=== PATIENT | male | born 1990 | race African-American/Black ===

== ENCOUNTER 2021-04-12 09:04 | Emergency (ER) | payer SELFPAY ==
[~2021-04-12] VITALS: Ht 170.2 cm; Wt 75.0 kg
[2021-04-12] MEDS ORDERED: KETOROLAC 30MG/ML VIAL IV STA (09:46)
[2021-04-12] MEDS ORDERED: SODIUM CHLORIDE 0.9% 1,000 ML IV ONE (10:00)
[2021-04-12 10:01] LABS: CLARITY URINE CLEAR (CLEAR); COLOR URINE YELLOW (YELLOW); KETONES URINE TRACE (NEGATIVE); LEUKOCYTE ESTERASE URINE NEGATIVE (NEGATIVE); NITRITE URINE NEGATIVE (NEGATIVE); OCCULT BLOOD URINE NEGATIVE (NEGATIVE); PH URINE 5.5 (4.5-8.0); PROTEIN URINE NEGATIVE (NEGATIVE); SPECIFIC GRAVITY URINE 1.021 (1.005-1.030); UROBILINOGEN URINE 0.2 E.U./dL (0.2-1.0)
[2021-04-12 10:03] LABS: BASOPHILS % 0.5 % (0.0-2.0); EOSINOPHILS % 0.2 % (0.0-5.0); HEMATOCRIT. 38.4 % (42.0-52.0); HEMOGLOBIN. 13.6 g/dL (14.0-18.0); LYMPHOCYTES % 13.2 % (20.0-50.0); MEAN PLATELET VOLUME 6.8 fl (7.4-10.4); MONOCYTES % 5.9 % (2.0-8.0); NEUTROPHILS % 80.2 % (40.0-76.0); PLATELET 272 x1000/uL (130-400); RED BLOOD CELL COUNT 4.13 mill/uL (4.7-6.1); RED CELL DISTRIBUTION WIDTH 12.4 % (11.6-14.6)
[2021-04-12 10:06] LABS: CHLORIDE 106 mEq/L (98-107)
[2021-04-12] MEDS ORDERED: KETOROLAC 60MG/2ML VIAL IM ONE (10:30)
[2021-04-12 11:10] VITALS: BP 117/75
[2021-04-12] MEDS ORDERED: IBUP-2029 MT (11:16)
== END 2021-04-12 11:22 | disposition home or self-care (01) ==
LOC: ER 09:04
DX: R10.31 Right lower quadrant pain (principal); F17.210 Nicotine dependence, cigarettes, uncomplicated; F14.10 Cocaine abuse, uncomplicated; F12.10 Cannabis abuse, uncomplicated; Z71.6 Tobacco abuse counseling; Z87.442 Personal history of urinary calculi
CPT/HCPCS: 36415; 74176; 80053; 81003; 83690; 85025; 99284; 99406; J1885; J7030

== ENCOUNTER 2022-09-28 15:54 | Emergency (ER) | payer MEDICAID ==
[~2022-09-28] VITALS: Ht 170.2 cm; Wt 66.0 kg
[~2022-09-28 15:54] MED LIST: IBUP-2029 MT
[2022-09-28 16:16] VITALS: BP 135/83
[2022-09-28] MEDS ORDERED: IBUPROFEN 400MG TABLET PO ONE (18:45)
[2022-09-28] MEDS ORDERED: ACETAMINOPHEN 325MG TABLET PO ONE (18:45)
[2022-09-28] MEDS ORDERED: IBUP-2028 MT (19:50)
== END 2022-09-28 19:56 | disposition home or self-care (01) ==
LOC: ER 15:54
DX: S20.319A Abrasion of unspecified front wall of thorax, initial encounter (principal); S30.811A Abrasion of abdominal wall, initial encounter; S30.810A Abrasion of lower back and pelvis, initial encounter; Y08.89XA Assault by other specified means, initial encounter; Y93.89 Activity, other specified; Y92.9 Unspecified place or not applicable; Z87.442 Personal history of urinary calculi
CPT/HCPCS: 71045; 76705; 99284